=== PATIENT | female | born 1975 | race Two or more races ===

== ENCOUNTER 2023-03-26 06:57 | Inpatient (IN) | payer MEDICAID, OTHER ==
[~2023-03-26] VITALS: Ht 157.5 cm; Wt 78.2 kg
[2023-03-26] MEDS ORDERED: SODIUM CHLORIDE 0.9% 1,000 ML IV ONE (07:15)
[2023-03-26 07:33] LABS: Basophils # (auto) 0 10 ^3/uL (0-0.2); Basophils % (auto) 0.5 % (0.0-2.0); Eosinophils # (auto) 0.1 10 ^3/uL (0-0.8); Eosinophils % (auto) 2.5 % (0.0-7.0); Hemoglobin 12.2 g/dL (12.2-16.2); Lymphocytes % (auto) 43.9 % (10.0-50.0); Mean Corpuscular Hemoglobin 31.4 pg (28.0-32.0); Mean Corpuscular Hgb Conc. 33.1 g/dL (32.0-36.0); Mean Corpuscular Volume 94.7 fL (80.0-100.0); Monocytes # (auto) 0.3 10 ^3/uL (0-1.3); Monocytes % (auto) 6.3 % (0.0-12.0); Neutrophils # (auto) 2.1 10 ^3/uL (1.6-8.6); Neutrophils % (auto) 46.8 % (37.0-80.0); Nucleated Red Blood Cells % 0.2 %; Red Cell Distribution Width 13.2 % (11.8-14.3); White Blood Cell 4.5 10^3/uL (4.4-10.8)
[2023-03-26 07:50] LABS: Alanine Aminotransferase 13 U/L (7-40); Albumin 4.1 g/dL (3.2-4.8); Alkaline Phosphatase 61 U/L (46-116); Anion Gap 4 (5-15); Aspartate Aminotransferase 13 U/L (13-40); BUN/Creatinine Ratio 15.6 (10.0-20.0); Blood Urea Nitrogen 12 mg/dL (9-23); Calcium 8.6 mg/dL (8.7-10.4); Carbon Dioxide 26 mmol/L (20-30); Chloride 108 mmol/L (98-107); Glucose 97 mg/dL (74-106); Potassium 3.9 mmol/L (3.5-5.1); Sodium 138 mmol/L (136-145)
[2023-03-26 07:51] LABS: Bilirubin, Total 0.5 mg/dL (0.2-1.0); Total Protein 6.4 g/dL (5.7-8.2)
[2023-03-26] MEDS ORDERED: KETOROLAC TROMETH 30 MG/ML 1ML VIAL IV ONE (08:00)
[2023-03-26] MEDS ORDERED: KETOROLAC TROMETH 60MG/2ML VIAL ONE (08:25)
[2023-03-26 10:40] LABS: Urine Bacteria NONE SEEN /hpf (None Seen); Urine Blood 3+ /uL (Negative); Urine Clarity Clear (Clear); Urine Color Straw (Yellow); Urine Protein, UAD Negative (Negative); Urine Specific Gravity 1.013 (1.001-1.035); Urine Urobilinogen Normal (Negative); Urine WBC 8 /hpf (0 - 5)
[2023-03-26] MEDS ORDERED: DOCUSATE SOD 100 MG CAP PO PRN (13:30)
[2023-03-26] MEDS ORDERED: MORPHINE SULFATE INJ 2 MG/ml SYRG IV PRN ×2 (13:30)
[2023-03-26] MEDS ORDERED: ONDANSETRON HCL 4 MG/2 ML VIAL IV PRN (13:30)
[2023-03-26] MEDS ORDERED: NITROGLYCERIN 0.4 MG SL TAB SL PRN (13:30)
[2023-03-26] MEDS ORDERED: HYDROcodone-ACET 5/325MG TAB PO PRN (13:30)
[2023-03-26] MEDS ORDERED: cefTRIAXone 1GM/50ML D5W 50 ML IV ONE (13:30)
[2023-03-26] MEDS ORDERED: ACETAMINOPHEN 325 MG TAB PO PRN (13:30)
[2023-03-26] MEDS: SODIUM CHLORIDE 0.9% 1,000 ML IV SCH ×2 (17:24→23:10)
[2023-03-26 20:05] VITALS: PULSE 59; RESP 10; O2SAT 97
[2023-03-27] MEDS: SODIUM CHLORIDE 0.9% 1,000 ML IV SCH (02:32)
[2023-03-27 05:28] LABS: Basophils # (auto) 0 10 ^3/uL (0-0.2); Basophils % (auto) 0.5 % (0.0-2.0); Eosinophils # (auto) 0.1 10 ^3/uL (0-0.8); Eosinophils % (auto) 2.4 % (0.0-7.0); Hematocrit 36.8 % (36.0-46.0); Hemoglobin 12.5 g/dL (12.2-16.2); Lymphocytes # (auto) 2.7 10 ^3/uL (0.4-5.4); Lymphocytes % (auto) 49.1 % (10.0-50.0); Mean Corpuscular Hemoglobin 32.1 pg (28.0-32.0); Mean Corpuscular Hgb Conc. 34.1 g/dL (32.0-36.0); Mean Corpuscular Volume 94.3 fL (80.0-100.0); Monocytes # (auto) 0.3 10 ^3/uL (0-1.3); Monocytes % (auto) 6.3 % (0.0-12.0); Neutrophils # (auto) 2.3 10 ^3/uL (1.6-8.6); Neutrophils % (auto) 41.7 % (37.0-80.0); Nucleated Red Blood Cells % 0.1 %; Red Cell Distribution Width 13.7 % (11.8-14.3); White Blood Cell 5.5 10^3/uL (4.4-10.8)
[2023-03-27 05:43] LABS: Alanine Aminotransferase 12 U/L (7-40); Albumin 3.9 g/dL (3.2-4.8); Alkaline Phosphatase 59 U/L (46-116); Anion Gap 4 (5-15); Aspartate Aminotransferase 11 U/L (13-40); BUN/Creatinine Ratio 17.3 (10.0-20.0); Bilirubin, Total 0.4 mg/dL (0.2-1.0); Blood Urea Nitrogen 13 mg/dL (9-23); Calcium 8.6 mg/dL (8.7-10.4); Carbon Dioxide 26 mmol/L (20-30); Chloride 110 mmol/L (98-107); Glucose 99 mg/dL (74-106); Potassium 4.5 mmol/L (3.5-5.1); Sodium 140 mmol/L (136-145); Total Protein 6.1 g/dL (5.7-8.2)
[2023-03-27 06:07] LABS: Triglycerides 106 mg/dL (< 150)
[2023-03-27 06:08] LABS: LDL Cholesterol 107 mg/dL (< 100)
[2023-03-27 06:09] LABS: Cholesterol 156 mg/dL (< 200); HDL Cholesterol 36 mg/dL (40-59)
[2023-03-27 08:45] VITALS: BP 121/57; PULSE 54; RESP 18; RESP 19; O2SAT 97; O2SAT 98
[2023-03-27 09:00] VITALS: BP 94/48; PULSE 60; RESP 18; TEMP 98.3; O2SAT 97
[2023-03-27] MEDS: cefTRIAXone 1GM/50ML D5W 50 ML IV SCH (09:37)
[2023-03-27] MEDS ORDERED: IBUPROFEN 400 MG TAB PO PRN (12:15)
[2023-03-27] MEDS ORDERED: traMADol HCL 50 MG TAB PO PRN (12:15)
[2023-03-27] MEDS ORDERED: guaiFENesin-DM 100/10mg/5ml SYR PO PRN (12:15)
[2023-03-27] MEDS ORDERED: GADOTERATE MEG 10 MMOL/20ml INJ (0.5MMOL/ml) IV ONE (12:32)
[2023-03-27 13:00] VITALS: BP 90/42; PULSE 65; RESP 18; TEMP 98.2; O2SAT 98
[2023-03-27 16:51] VITALS: BP 106/43; PULSE 58; RESP 16; TEMP 98.1; O2SAT 97
[2023-03-27 20:00] VITALS: PULSE 57
[2023-03-27] MEDS ORDERED: ATORVASTATIN 20 MG TAB PO SCH (22:00)
[2023-03-28] VITALS: BP 117/81; PULSE 93; RESP 18; TEMP 98; O2SAT 95
[2023-03-28 04:43] VITALS: BP 97/52; PULSE 54; RESP 18; TEMP 97.8; O2SAT 97
[2023-03-28 08:00] VITALS: BP 99/54; PULSE 55; PULSE 62; RESP 18; TEMP 98.7; O2SAT 100
[2023-03-28] MEDS: cefTRIAXone 1GM/50ML D5W 50 ML IV SCH (09:26)
[2023-03-28 12:54] VITALS: BP 111/68; PULSE 66; RESP 18; TEMP 97.9; O2SAT 95
== END 2023-03-28 16:47 | disposition home or self-care (01) | DRG 347 ==
LOC: ER 06:57 → EDBD 06:57 → TELE 13:36 → TELE-WESTW 03-27 08:20
PROVIDERS: ADMIT Internal Medicine Pulmonary Disease; ATTEND Student in an Organized Health Care Education/Training Program
DX: M48.061 Spinal stenosis, lumbar region without neurogenic claudication (principal); N30.01 Acute cystitis with hematuria; E66.9 Obesity, unspecified; E78.5 Hyperlipidemia, unspecified; Z68.31 Body mass index [BMI] 31.0-31.9, adult; M43.16 Spondylolisthesis, lumbar region
CPT/HCPCS: 36415; 70450; 72131; 72148; 76775; 80053; 80061; 81001; 83036; 84443; 84484; 85025; 87086; 93005; 93306; 96361; 96374; 97110; 97116; 97163; 97530; G0378; J0696; J1885